=== PATIENT | male | born 1965 | race Caucasian/White ===

== ENCOUNTER 2019-07-17 09:49 | Emergency (ER) | payer MEDICAID ==
[~2019-07-17] VITALS: Ht 175.3 cm; Wt 113.4 kg
[2019-07-17] MEDS ORDERED: METFORMIN HCL1000 MG PO (10:15)
[2019-07-17] MEDS ORDERED: LISINOPRIL5 MG PO (10:15)
[2019-07-17] MEDS ORDERED: GLIPIZIDE5 MG PO (10:15)
[2019-07-17] MEDS ORDERED: AUGMENTIN 875-1 EACH PO (10:25)
[2019-07-17] MEDS ORDERED: BACTRIM DS TAB1 EACH PO (10:25)
== END 2019-07-17 10:41 | disposition home or self-care (01) ==
LOC: ED 09:49
DX: J32.9 Chronic sinusitis, unspecified (principal); L03.211 Cellulitis of face; R50.9 Fever, unspecified
CPT/HCPCS: 99283